=== PATIENT | female | born 1980 | race Caucasian/White ===

== ENCOUNTER → 2023-05-20 12:16 | Outpatient (BNVA) | payer BC, SELFPAY | PROVIDERS: PCP Nurse Practitioner Family; Visit Provider Nurse Practitioner Family | DX: Z13.6 Encounter for screening for cardiovascular disorders | CPT/HCPCS: 80053; 80061; 85025 ==

== ENCOUNTER 2023-05-26 12:02 | Outpatient (CLI) | payer BC, MEDICAID, SELFPAY ==
--- NOTE | 2023-05-26 12:00 | MM_ITS ---
WS: [id number] BILATERAL SCREENING DIGITAL TOMOSYNTHESIS MAMMOGRAM WITH CAD HISTORY: Z12.31 - Encounter for screening mammogram for malignant ... COMPARISON: None available. Bilateral CC and MLO views with tomosynthesis and synthetic mammography submitted. Computer aided det ection analyzed. Breast composition: The breasts are heterogeneously dense, which may obscure small masses. No suspici ous masses, microcalcifications or architectural distortion. IMPRESSION: MM/[place] [id number] BI-RADS: 1-Negative FOLLOW UP: 1 Year Follow-up
== END 2023-05-26 12:03 | disposition home or self-care (01) ==
LOC: MOBLMAM 12:07
PROVIDERS: PCP Nurse Practitioner Family; Visit Provider Nurse Practitioner Family
DX: Z12.31 Encounter for screening mammogram for malignant neoplasm of breast (principal)
CPT/HCPCS: 77063; 77067

== ENCOUNTER 2024-06-01 10:56 | Outpatient (CLI) | payer BC, MEDICAID, SELFPAY ==
--- NOTE | 2024-06-01 11:00 | MM_ITS ---
WS: [id number] SCREENING DIGITAL TOMOSYNTHESIS MAMMOGRAM WITH CAD HISTORY: SCREENING COMPARISON: 05/26/2023 Bilateral CC and MLO with tomosynthesis views submitted. Synthetic mammography reviewed. Computer aided detection analyzed. Breast composition: The breasts are extremely dense, which lowers the sensitivity of mammography. No suspicious masses, microcalcifications or architectural distortion. MM/MM scr BI tomosynthesis [id number] IMPRESSION: BI-RADS: 1 - Negative FOLLOW UP: 1 Year Follow-up
== END 2024-06-01 10:57 | disposition home or self-care (01) ==
LOC: MOBLMAM 10:58
PROVIDERS: PCP Nurse Practitioner Family; Visit Provider Nurse Practitioner Family
DX: Z12.31 Encounter for screening mammogram for malignant neoplasm of breast (principal); R92.343 Mammographic extreme density, bilateral breasts
CPT/HCPCS: 77063; 77067

== ENCOUNTER → 2024-06-15 11:52 | Outpatient (BNVA) | payer BC, MEDICAID, SELFPAY | PROVIDERS: PCP Nurse Practitioner Family; Visit Provider Nurse Practitioner Family | DX: S52.692A Other fracture of lower end of left ulna, initial encounter for closed fracture (principal); X58.XXXA Exposure to other specified factors, initial encounter; M79.632 Pain in left forearm | CPT/HCPCS: 73090 ==

== ENCOUNTER → 2024-06-21 09:23 | Outpatient (BNVA) | payer BC, MEDICAID, SELFPAY | PROVIDERS: PCP Nurse Practitioner Family; Visit Provider Student in an Organized Health Care Education/Training Program | DX: M79.632 Pain in left forearm (principal); S52.202A Unspecified fracture of shaft of left ulna, initial encounter for closed fracture; W11.XXXA Fall on and from ladder, initial encounter; M77.11 Lateral epicondylitis, right elbow | CPT/HCPCS: 73080; 73090; 73110 ==

== ENCOUNTER 2024-06-21 11:03 | Outpatient (CLI) | payer BC, MEDICAID, SELFPAY | END 2024-06-21 11:04 | disposition home or self-care (01) | LOC: SPT 11:04 | PROVIDERS: PCP Nurse Practitioner Family; Visit Provider Student in an Organized Health Care Education/Training Program | DX: Z46.89 Encounter for fitting and adjustment of other specified devices (principal); S52.92XD Unspecified fracture of left forearm, subsequent encounter for closed fracture with routine healing; S52.202D Unspecified fracture of shaft of left ulna, subsequent encounter for closed fracture with routine healing; X58.XXXD Exposure to other specified factors, subsequent encounter | CPT/HCPCS: L3982 ==

== ENCOUNTER → 2024-07-05 11:06 | Outpatient (BNVA) | payer BC, MEDICAID, SELFPAY | PROVIDERS: PCP Nurse Practitioner Family; Visit Provider Student in an Organized Health Care Education/Training Program | DX: S52.202D Unspecified fracture of shaft of left ulna, subsequent encounter for closed fracture with routine healing (principal); X58.XXXD Exposure to other specified factors, subsequent encounter | CPT/HCPCS: 73110 ==

== ENCOUNTER → 2024-08-02 10:40 | Outpatient (BNVA) | payer BC, MEDICAID, SELFPAY | PROVIDERS: PCP Nurse Practitioner Family; Visit Provider Student in an Organized Health Care Education/Training Program | DX: S52.202A Unspecified fracture of shaft of left ulna, initial encounter for closed fracture (principal); X58.XXXA Exposure to other specified factors, initial encounter | CPT/HCPCS: 73110 ==

== ENCOUNTER 2024-08-08 05:00 | Outpatient (RCR) | payer BC, MEDICAID, SELFPAY | END 2024-09-07 23:59 | disposition home or self-care (01) | LOC: GPT 05:00 | PROVIDERS: PCP Nurse Practitioner Family; Visit Provider Student in an Organized Health Care Education/Training Program | DX: S52.209D Unspecified fracture of shaft of unspecified ulna, subsequent encounter for closed fracture with routine healing (principal); X58.XXXD Exposure to other specified factors, subsequent encounter | CPT/HCPCS: 97161 ==

== ENCOUNTER → 2024-09-19 09:43 | Outpatient (BNVA) | payer BC, MEDICAID, SELFPAY | PROVIDERS: PCP Nurse Practitioner Family; Visit Provider Student in an Organized Health Care Education/Training Program | DX: S52.202D Unspecified fracture of shaft of left ulna, subsequent encounter for closed fracture with routine healing (principal); X58.XXXD Exposure to other specified factors, subsequent encounter | CPT/HCPCS: 73110 ==